=== PATIENT | female | born 1995 | race American Indian/Alaskan Native ===

== ENCOUNTER 2018-01-14 20:21 | Emergency (ER) | payer SELFPAY ==
[2018-01-14 21:00] VITALS: BP 114/70
[2018-01-14 21:20] LABS: Basophils # (Auto) 0.1 K/mm3 (0.0-0.1); Basophils % (Auto) 0.9 % (0.0-1.8); Eosinophils # (Auto) 0.1 K/mm3 (0.0-0.4); Eosinophils % (Auto) 1.1 % (0.0-4.3); Hematocrit 38.5 % (30.3-42.9); Hemoglobin 12.8 gm/dl (10.1-14.3); Lymphocytes # (Auto) 3.4 K/mm3 (1.2-5.4); Lymphocytes % (Auto) 33.8 % (13.4-35.0); Mean Corpuscular HGB Conc 33 % (30-34); Mean Corpuscular Hemoglobin 29 pg (28-32); Mean Corpuscular Volume 86 fl (79-97); Monocytes # (Auto) 0.5 K/mm3 (0.0-0.8); Monocytes % (Auto) 5.1 % (0.0-7.3); Platelet Count 189 K/mm3 (140-440); Red Blood Count 4.49 M/mm3 (3.65-5.03)
== END 2018-01-14 21:15 | disposition left against medical advice (07) ==
LOC: ED 20:21
DX: D57.219 Sickle-cell/Hb-C disease with crisis, unspecified (principal); Z53.21 Procedure and treatment not carried out due to patient leaving prior to being seen by health care provider
CPT/HCPCS: 36415; 85025; 85045

== ENCOUNTER 2020-01-17 07:52 | Emergency (ER) | payer BC ==
[2020-01-17 08:02] VITALS: BP 123/82
--- NOTE | 2020-01-17 08:38 | Emergency Department Report ---
- General Chief complaint: Skin/Abscess/Foreign Body Stated complaint: ABSCESS Time Seen by Provider: 01/17/20 08:09 Source: patient Mode of arrival: Ambulatory Limitations: No Limitations - History of Present Illness Initial comments: Patient is a 24-year-old female presents emergency room complaints of a possible abscess to the left buttock that began 3 days ago. She states that it has been gradually increasing in size. She states that she has attempted to do warm compresses. She denies any drainage, fever, vomiting. She denies any abrasions or getting bit by anything. Patient is currently 21 weeks , she denies any abd pain or vaginal bleeding. She states her OB is at [facility]. She states that she has an appointment with them on 01/20/2020. She has a past medical history of sickle cell. No allergies to medications. - Related Data Previous Rx's Medication Instructions Recorded Last Taken Type Gentamicin 0.3% Ophth Soln 2 drops OP Q4H 5 Days bottle 08/23/14 Unknown Rx Acetaminophen [Tylenol] 500 mg PO Q6HR PRN #30 tablet 10/16/19 Unknown Rx Vit 43/Iron/Folic/Dss 1 each PO DAILY #60 tablet. 10/16/19 Unknown Rx [Atabex EC Caplet] Promethazine [Phenergan] 25 mg PO Q6HR PRN #30 tab 10/16/19 Unknown Rx Acetaminophen [Tylenol] 650 mg PO Q8HR PRN #20 capsule 01/17/20 Unknown Rx Clindamycin [Clindamycin CAP] 450 mg PO TID 7 Days #63 capsule 01/17/20 Unknown Rx Allergies Allergy/AdvReac Type Severity Reaction Status Date / Time No Known Allergies Allergy Unverified 08/23/14 13:55 Abscess Boil HPI - HPI Chief Complaint: Skin/Abscess/Foreign Body Stated Complaint: ABSCESS Time Seen by Provider: 01/17/20 08:09 Home Medications: Previous Rx's Medication Instructions Recorded Last Taken Type Gentamicin 0.3% Ophth Soln 2 drops OP Q4H 5 Days bottle 08/23/14 Unknown Rx Acetaminophen [Tylenol] 500 mg PO Q6HR PRN #30 tablet 10/16/19 Unknown Rx Vit 43/Iron/Folic/Dss 1 each PO DAILY #60 tablet. 10/16/19 Unknown Rx [Atabex EC Caplet] Promethazine [Phenergan] 25 mg PO Q6HR PRN #30 tab 10/16/19 Unknown Rx Acetaminophen [Tylenol] 650 mg PO Q8HR PRN #20 capsule 01/17/20 Unknown Rx Clindamycin [Clindamycin CAP] 450 mg PO TID 7 Days #63 capsule 01/17/20 Unknown Rx Allergies/Adverse Reactions: Allergies Allergy/AdvReac Type Severity Reaction Status Date / Time No Known Allergies Allergy Unverified 08/23/14 13:55 ED Review of Systems ROS: Stated complaint: ABSCESS Other details as noted in HPI Comment: All other systems reviewed and negative ED Past Medical Hx - Past Medical History Previous Medical History?: Yes Hx Sickle Cell Disease: Yes Additional medical history: sickle cell - Surgical History Past Surgical History?: No - Social History Smoking Status: Never Smoker - Medications Home Medications: Home Medications Medication Instructions Recorded Confirmed Last Taken Type Gentamicin 0.3% Ophth Soln 2 drops OP Q4H 5 Days bottle 08/23/14 Unknown Rx Acetaminophen [Tylenol] 500 mg PO Q6HR PRN #30 tablet 10/16/19 Unknown Rx Vit 43/Iron/Folic/Dss 1 each PO DAILY #60 tablet. 10/16/19 Unknown Rx [Atabex EC Caplet] Promethazine [Phenergan] 25 mg PO Q6HR PRN #30 tab 10/16/19 Unknown Rx Acetaminophen [Tylenol] 650 mg PO Q8HR PRN #20 capsule 01/17/20 Unknown Rx Clindamycin [Clindamycin CAP] 450 mg PO TID 7 Days #63 capsule 01/17/20 Unknown Rx ED Physical Exam - General Limitations: No Limitations General appearance: alert, in no apparent distress - Head Head exam: Present: atraumatic, normocephalic - Eye Eye exam: Present: normal appearance - ENT ENT exam: Present: mucous membranes moist - Respiratory Respiratory exam: Absent: respiratory distress, accessory muscle use - Rectal Rectal exam: Present: other (there is a 2 cm area of mild induration present to the left medial buttock, does not involve the gluteal cleft, does not involve the rectum or perineum, no fluctuance, no drainage, no opening, no blistering, no necrosis, no skin denuding, tmd teacher assistant: angelita patel) - Neurological Exam Neurological exam: Present: alert, oriented X3 - Psychiatric Psychiatric exam: Present: normal affect, normal mood - Skin Skin exam: Present: warm, dry ED Course Vital Signs 01/17/20 01/17/20 08:01 09:04 Temperature 98.0 F Pulse Rate 106 H 90 Respiratory 16 16 Rate Blood Pressure 123/82 [Right] O2 Sat by Pulse 98 97 Oximetry ED Medical Decision Making - Lab Data Vital Signs 01/17/20 01/17/20 08:01 09:04 Temperature 98.0 F Pulse Rate 106 H 90 Respiratory 16 16 Rate Blood Pressure 123/82 [Right] O2 Sat by Pulse 98 97 Oximetry - Medical Decision Making Patient is a 24-year-old female presents emergency room complaints of a possible abscess to the left buttock that began 3 days ago. She states that it has been gradually increasing in size. She states that she has attempted to do warm compresses. She denies any drainage, fever, vomiting. She denies any abrasions or getting bit by anything. Patient is currently 21 weeks , she denies any abd pain or vaginal bleeding. She states her OB is at [facility]. She states that she has an appointment with them on 01/20/2020. She has a past medical history of sickle cell. No allergies to medications. initial vitals with very mild tachycardia which improved to normal on repeat. on exam: there is a 2 cm area of mild induration present to the left medial buttock, does not involve the gluteal cleft, does not involve the rectum or perineum, no fluctuance, no drainage, no opening, no blistering, no necrosis, no skin denuding, tmd teacher assistant: angelita patel. Examination appears consistent with mild cellulitis, there is no signs of drainable abscess at this time. Patient will be placed on antibiotics. Advised patient that she needed to have the area reexamined within the next 2 to 3 days, she verbalized understanding and states that she already has an appointment on 01/20/2020. Discussed very strict return precautions with patient. Patient given prescription for clindamycin and Tylenol. Advised patient Please take medication as prescribed. Please do warm compresses 3-5 times a day. May soak in Epson salt bath. Follow-up with your doctor in the next 2 to 3 days and have the area reexamined. Return to emergency room immediately for any new or worsening symptoms including but not limited to worsening swelling, worsening pain, fever, increased redness, vomiting, etc. - Differential Diagnosis abscess, cellulitis, folliculitis, carbuncle, insect bite, hemorrhoids Critical care attestation.: If time is entered above; I have spent that time in minutes in the direct care of this critically ill patient, excluding procedure time. ED Disposition Clinical Impression: Cellulitis, gluteal, left Disposition: DC-01 TO HOME OR SELFCARE Is pt being admited?: No Does the pt Need Aspirin: No Condition: Stable Instructions: Cellulitis (ED) Additional Instructions: Please take medication as prescribed. Please do warm compresses 3-5 times a day. May soak in Epson salt bath. Follow-up with your doctor in the next 2 to 3 days and have the area reexamined. Return to emergency room immediately for any new or worsening symptoms including but not limited to worsening swelling, worsening pain, fever, increased redness, vomiting, etc. Prescriptions: Clindamycin [Clindamycin CAP] 450 mg PO TID 7 Days #63 capsule Acetaminophen [Tylenol] 650 mg PO Q8HR PRN #20 capsule PRN Reason: pain Referrals: your, doctor [Other] - 2-3 Days Time of Disposition: 08:36 Print Language: ANGOLAN
== END 2020-01-17 09:06 | disposition home or self-care (01) ==
LOC: ED 07:52
DX: L03.317 Cellulitis of buttock (principal); Z79.899 Other long term (current) drug therapy
CPT/HCPCS: 99282

== ENCOUNTER 2020-04-03 15:25 | Outpatient (CLI) | payer BC, MEDICAID ==
[2020-04-03] MEDS ORDERED: LACTATED RINGERS 500 ML IV ONE (17:33)
--- NOTE | 2020-04-03 17:42 | Ultrasound Report ---
US OB limited, US OB BPP wo non-stress INDICATION / CLINICAL INFORMATION: rule out abruption, Jannet. COMPARISON: 10/16/2019 FINDINGS: A single fetus is seen in cephalic presentation. JANNET is 13.4 and heart rate is 144. Placenta is anterior, grade 2 and free of the os. No lifting or separation of the placenta is seen. BPP is 8/8 IMPRESSION: Single fetus in cephalic presentation with JANNET 13.4 B heart rate 144. No evidence of placental abrupt ion. BPP is 8/8 Signer Name: Tommy Greer MD FACR Signed: 04/03/2020 5:38 PM Workstation Name: [id number]
[2020-04-03 17:59] VITALS: BP 119/57
[2020-04-03 18:24] LABS: Bacteria,Urine 3+ /HPF (Negative); Bilirubin,Urine NEG (Negative); Blood,Urine NEG (Negative); Color,Urine Yellow (Yellow); Mucus,Urine FEW /HPF; Protein,Urine <15 mg/dL mg/dL (Negative); Urobilinogen,Urine < 2.0 mg/dL (<2.0)
[2020-04-03 18:29] LABS: Amphetamine Screen,Urine PRESUMPTIVE NEGATIVE; Benzodiazepines Screen,Urine PRESUMPTIVE NEGATIVE; Cannabinoid Screen,Urine PRESUMPTIVE POSITIVE; Cocaine Screen,Urine PRESUMPTIVE NEGATIVE; Methadone Screen,Urine PRESUMPTIVE NEGATIVE; Opiate Screen,Urine PRESUMPTIVE NEGATIVE
== END 2020-04-03 20:56 | disposition home or self-care (01) ==
LOC: APU 15:25 → TRG 15:25
PROVIDERS: ATTEND Obstetrics & Gynecology
DX: O9A.213 Injury, poisoning and certain other consequences of external causes complicating pregnancy, third trimester (principal); Z3A.32 32 weeks gestation of pregnancy
CPT/HCPCS: 59025; 76815; 76819; 80307; 81001; 86850; 86900; 86901; 96360; J7120